=== PATIENT | male | born 1985 | race Caucasian/White ===

== ENCOUNTER 2022-08-14 20:33 | Emergency (ER) | payer MEDICAID ==
[~2022-08-14] VITALS: Ht 180.3 cm; Wt 74.8 kg
[2022-08-14] MEDS ORDERED: OXYCODONE/APAP 5-325 MG TABLET PO ONE (20:45)
[2022-08-14] MEDS ORDERED: OXYCODONE/APAP 5-325 MG TABLET ONE (20:50)
--- NOTE | 2022-08-14 21:08 | NUR ---
patients orders of: Right ankle XRAY ordered when patient was in [facility] Status. Called ER to reorder when patient is [facility]. When patient is ordered in [facility], patient is unable to be picked up by machines in work list. NEEDS TO BE REORDERED. Ordered 2043. hardboard supervisor was informed thereafter
--- NOTE | 2022-08-14 21:19 | NUR ---
called the Radiology sup. by changing one minute to the order of the [facility], it changed the status and picked up on the computer.
[2022-08-14] MEDS ORDERED: OXYC-128 PO (21:33)
--- NOTE | 2022-08-14 21:50 | NUR ---
Patient discharged to home in stable condition. Written and verbal after care instructions given. Patient verbalizes understanding of instructions. Stressed follow up or return to ER for worsening s/s. Patient is a/ox4, NAD notred. Patient is able to walk with leg boot and crutches
[2022-08-14 21:56] VITALS: BP 120/67
== END 2022-08-14 21:57 | disposition home or self-care (01) ==
LOC: ER 20:50
DX: S92.101A Unspecified fracture of right talus, initial encounter for closed fracture (principal); W01.0XXA Fall on same level from slipping, tripping and stumbling without subsequent striking against object, initial encounter; Y92.481 Parking lot as the place of occurrence of the external cause; F17.210 Nicotine dependence, cigarettes, uncomplicated
CPT/HCPCS: 73610; A4663